=== PATIENT | male | born 1995 | race Hispanic/Latino ===

== ENCOUNTER 2020-06-23 17:42 | Inpatient (IN) | payer OTHER ==
[2020-06-23] MEDS ORDERED: Acetaminophen 500 MG TAB ONE (18:27)
[2020-06-23] MEDS ORDERED: Ondansetron PF 4 MG/2 ML Vial ONE (18:35)
[2020-06-23 18:36] LABS: #Basophils 0.1 10x3/uL (0.0-0.2); #Monocytes 0.8 10x3/uL (0.0-1.1); #Neutrophils 15.4 10x3/uL (1.5-8.4); %Basophils 0.3 % (0.0-2.0); %Lymphocytes 3.4 % (18.0-47.0); %Monocytes 4.9 % (0.0-10.0); %Neutrophils 90.9 % (40.0-75.0); Mean Corpuscular HGB CONC 35.8 g/dL (32.0-36.0); Mean Corpuscular Hemoglobin 32.8 pg (27.0-33.0); Mean Corpuscular Volume 91.6 fl (81.2-95.1); Mean Platelet Volume 10.6 fl (7.4-10.4); Platelet Count 189 10x3/uL (150-450); RBC Distribution Width 11.6 % (11.5-14.5); Red Blood Cell (RBC) Count 4.27 10x6/uL (4.32-5.72)
[2020-06-23 18:53] LABS: ALT (SGPT) 10 U/L (8-55); AST (SGOT) 15 U/L (5-34); Alkaline Phosphatase 71 U/L (40-110); Anion Gap 14 mmol/L (10-20); BUN (Urea Nitrogen) 9 mg/dL (8.9-20.6); Bilirubin, Total 1.3 mg/dL (0.2-1.2); Calc. Creatinine Clearance 0 mL/min (70-130); Calcium 8.8 mg/dL (7.8-10.44); Carbon Dioxide 23 mmol/L (22-29); Chloride 107 mmol/L (98-107); Globulin 2.7 g/dL (2.4-3.5); Glucose 119 mg/dL (70-105); Potassium 3.5 mmol/L (3.5-5.1); Protein, Total 6.7 g/dL (6.0-8.3); Sodium 140 mmol/L (136-145)
[2020-06-23] MEDS ORDERED: Piperacillin/Tazobactam 4.5 GM VIAL ONE (20:28)
[2020-06-23 21:20] LABS: SARS-CoV-2 NAA Rapid Test Not Detected (NotDetected)
[2020-06-23 22:13] VITALS: BMI 20.9
[2020-06-23] MEDS ORDERED: Morphine 4 MG/ML VIAL SLOW IVP PRN (22:26)
[2020-06-23] MEDS ORDERED: Ondansetron ODT 4 MG TAB SL PRN (22:30)
[2020-06-23] MEDS ORDERED: Ondansetron PF 4 MG/2 ML Vial IVP PRN (22:30)
[2020-06-23] MEDS: Sodium Chloride 0.9% 1,000 ML IV SCH (23:33)
[2020-06-23] MEDS: Acetaminophen 325 MG TAB PO PRN (23:34)
[2020-06-24] MEDS ORDERED: Piperacillin/Tazobactam 4.5 GM in Sodium Chloride 0.9% 100 ML IVPB SCH (03:00)
[2020-06-24] MEDS ORDERED: cefTRIAXone\\ROCEPHIN 1 GM VIAL ONE (03:29)
[2020-06-24] MEDS ORDERED: Piperacillin/Tazobactam 3.375 GM VIAL ONE (04:00)
[2020-06-24] MEDS: Acetaminophen 325 MG TAB PO PRN (06:08)
[2020-06-24] MEDS ORDERED: Metoclopramide HCl 10 MG/2 ML VIAL IVP SCH (06:15)
[2020-06-24] MEDS ORDERED: Promethazine HCl 25 MG/ML VIAL IM SCH (06:15)
[2020-06-24] MEDS: Sodium Chloride 0.9% 1,000 ML IV SCH (06:26)
[2020-06-24] MEDS ORDERED: EPINEPHrine 1 MG/ML AMP ONE (08:35)
[2020-06-24] MEDS ORDERED: Bupivacaine PF 0.5% 30 ML VIAL ONE (08:35)
[2020-06-24] MEDS ORDERED: Ketorolac Tromethamine 30 MG/ML VIAL ONE (08:48)
[2020-06-24] MEDS ORDERED: Fentanyl 100 MCG/2 ML VIAL ONE ×3 (08:48→10:06)
[2020-06-24] MEDS ORDERED: PROPOFOL 20 ML ONE (08:49)
[2020-06-24] MEDS ORDERED: Lidocaine 1% PF 5 ML VIAL ONE (08:49)
[2020-06-24] MEDS ORDERED: Glycopyrrolate 0.2 MG/ML 5 ML SYRINGE ONE (08:49)
[2020-06-24] MEDS ORDERED: diphenhydrAMINE 50 MG/ML VIAL ONE (08:49)
[2020-06-24] MEDS ORDERED: Ondansetron PF 4 MG/2 ML Vial ONE (08:49)
[2020-06-24] MEDS ORDERED: Rocuronium Bromide 10 MG/ML (10ML VIAL) ONE (08:49)
[2020-06-24] MEDS ORDERED: Succinylcholine 200 MG/10 ml SYRINGE FS ONE (08:50)
[2020-06-24] MEDS ORDERED: Dexamethasone 20 MG/5 ML VIAL ONE (08:54)
[2020-06-24] MEDS ORDERED: FLU VACC QS2020-21(6MOS UP)/PF 60 MCG/0.5 ML SYRINGE IM ONE (09:00)
[2020-06-24] MEDS ORDERED: Ondansetron PF 4 MG/2 ML Vial IVP PRN (10:08)
[2020-06-24] MEDS ORDERED: Ondansetron ODT 4 MG TAB PO PRN ×2 (10:08→10:17)
[2020-06-24] MEDS ORDERED: hydrALAZINE 20 MG/ML VIAL SLOW IVP PRN (10:08)
[2020-06-24] MEDS ORDERED: Morphine 2 MG/ML VIAL SLOW IVP PRN (10:08)
[2020-06-24] MEDS ORDERED: Acetaminophen 500 MG TAB PO PRN (10:17)
[2020-06-24] MEDS ORDERED: Ondansetron ODT 8 MG TAB SL PRN (10:17)
[2020-06-24] MEDS ORDERED: Ibuprofen 600 MG TAB PO PRN (10:17)
[2020-06-24] MEDS ORDERED: traMADol HCl 50 MG TAB PO PRN (10:17)
[2020-06-24] MEDS ORDERED: Promethazine 25 MG TAB PO PRN (10:17)
[2020-06-24] MEDS ORDERED: Lactated Ringer's 1,000 ML IV SCH (10:30)
[2020-06-24 16:17] VITALS: BP 99/57; TEMP 97.7
[2020-06-24] MEDS ORDERED: Enoxaparin Sodium 40 MG/0.4 ML SYRINGE SC SCH (21:00)
== END 2020-06-24 17:53 | disposition home or self-care (01) | DRG 343 ==
LOC: CSHERS 17:42 → CSHTELE 21:46 → OBSVTOIN 06-24 10:19
PROVIDERS: ADMIT Specialist; ATTEND Specialist
PROC: 0DTJ4ZZ Resection of Appendix, Percutaneous Endoscopic Approach (ICD-10-PCS; principal; 2020-06-24)
DX: K35.80 Unspecified acute appendicitis (principal); F17.290 Nicotine dependence, other tobacco product, uncomplicated; Z20.822 Contact with and (suspected) exposure to COVID-19
CPT/HCPCS: 71045; 71046; 74177; 80053; 85025; 88304; 96365; 96375; J0171; J0696; J1100; J1200; J1885; J2405; J2543; J2550; J2704; J2765; J3010; J3490; J7050; S0020; U0002